=== PATIENT | female | born 1985 | race African-American/Black ===

== ENCOUNTER 2017-12-07 21:33 | Emergency (ER) | payer OTHER, SELFPAY ==
[2017-12-07] MEDS ORDERED: Acetaminophen/Codeine 30-300mg Tablet ONE (21:50)
[2017-12-07] MEDS ORDERED: Clindamycin 150 MG CAP ONE (21:50)
== END 2017-12-07 21:56 | disposition home or self-care (01) ==
LOC: BURERS 21:33
DX: K04.7 Periapical abscess without sinus (principal); F17.210 Nicotine dependence, cigarettes, uncomplicated
CPT/HCPCS: 99282

== ENCOUNTER → 2020-04-10 | Emergency (ER) | payer OTHER ==
--- NOTE | 2020-04-10 18:53 | RAD ---
RIGHT FOOT THREE VIEWS: 04/10/20 No fracture was seen. All bones appear intact. The joints appear normal. IMPRESSION: No acute findings. POS: HOME
== END ==
LOC: BURERS 16:41
DX: S93.601A Unspecified sprain of right foot, initial encounter (principal); F17.210 Nicotine dependence, cigarettes, uncomplicated; W18.42XA Slipping, tripping and stumbling without falling due to stepping into hole or opening, initial encounter
CPT/HCPCS: 99281

== ENCOUNTER 2021-11-16 16:38 | Emergency (ER) | payer OTHER, SELFPAY | END 2021-11-16 16:59 | disposition home or self-care (01) | LOC: BURERS 16:38 | DX: I10 Essential (primary) hypertension (principal); F17.210 Nicotine dependence, cigarettes, uncomplicated; Z79.899 Other long term (current) drug therapy | CPT/HCPCS: 93005; 99406 ==

== ENCOUNTER 2021-12-11 20:53 | Emergency (ER) | payer SELFPAY ==
[2021-12-11 23:31] LABS: Mean Corpuscular HGB CONC 33.8 g/dL (32.0-36.0); Mean Corpuscular Hemoglobin 30.4 pg (27.0-31.0); Mean Corpuscular Volume 89.9 fL (78.0-98.0); Mean Platelet Volume 7.3 fL (7.4-10.4); Platelet Count 212 thou/uL (130-400); RBC Distribution Width 13.2 % (11.5-14.5); Red Blood Cell (RBC) Count 4.59 mill/uL (4.20-5.40); White Blood Cell (WBC) Count 2.8 thou/uL (4.8-10.8)
[2021-12-11 23:38] LABS: ALT (SGPT) 18 U/L (8-55); AST (SGOT) 22 U/L (5-34); Albumin 4.5 g/dL (3.5-5.0); Alkaline Phosphatase 51 U/L (40-110); Anion Gap 14 mmol/L (10-20); BUN (Urea Nitrogen) 9 mg/dL (7.0-18.7); Bilirubin, Total Less than 0.2 mg/dL (0.2-1.2); Calc. Creatinine Clearance 0 mL/min (70-130); Calcium 9.6 mg/dL (7.8-10.44); Carbon Dioxide 26 mmol/L (22-29); Chloride 104 mmol/L (98-107); Globulin 3.5 g/dL (2.4-3.5); Glucose 97 mg/dL (70-105); Sodium 140 mmol/L (136-145)
[2021-12-12 00:02] LABS: Lymphocytes 60 % (21-51); MDiff Complete? YES; Monocytes 15 % (0-10); Neutrophil 25 % (42-75); Platelet Morphology Comment Appears Adequate; RBC Morphology Normal
== END 2021-12-12 01:34 | disposition left against medical advice (07) ==
LOC: BURERS 20:53
DX: B34.9 Viral infection, unspecified (principal); R07.9 Chest pain, unspecified; R94.31 Abnormal electrocardiogram [ECG] [EKG]; I10 Essential (primary) hypertension; F17.210 Nicotine dependence, cigarettes, uncomplicated
CPT/HCPCS: 36415; 71045; 80053; 83880; 84443; 84484; 85025; 93005

== ENCOUNTER 2023-03-08 18:21 | Emergency (ER) | payer SELFPAY ==
[~2023-03-08 18:21] MED LIST: Iopamidol 370 76% 100 ML VIAL ONE
[2023-03-08 18:44] LABS: #Eosinphils 0.1 thou/uL (0.0-0.7); #Lymphocytes 2.1 thou/uL (1.20-3.40); #Monocytes 0.4 thou/uL (0.11-0.59); #Neutrophils 2.9 thou/uL (1.40-6.50); %Basophils 0.8 % (0.0-1.0); %Eosinophils 1.1 % (0.0-10.0); %Monocytes 6.4 % (0.0-10.0); %Neutrophils 53.8 % (42.0-75.0); Hemoglobin 12.8 g/dL (12.0-16.0); Mean Corpuscular HGB CONC 31.9 g/dL (32.0-36.0); Mean Corpuscular Hemoglobin 30.3 pg (27.0-31.0); Platelet Count 230 10x3/uL (130-400); RBC Distribution Width 12.6 % (11.5-14.5); Red Blood Cell (RBC) Count 4.23 mill/uL (4.20-5.40); White Blood Cell (WBC) Count 5.5 10x3/uL (4.8-10.8)
[2023-03-08] MEDS ORDERED: Mag-Al Plus 1200 MG/1200 MG/120 MG/30 ML UDCUP ONE (18:48)
[2023-03-08] MEDS ORDERED: Famotidine 20 MG TAB ONE (18:48)
[2023-03-08 18:57] LABS: Bilirubin Negative (Negative); Blood, Urine Moderate (Negative); Clarity Cloudy (Clear); Glucose, Urine (Dipstick) Negative (Negative); Ketone, Urine Negative (Negative); Leukocyte Negative (Negative); Nitrite Negative (Negative); Protein, Urine (Dipstick) Negative (Neg-Trace); Specific Gravity, Urine 1.025 (1.005-1.030); Urobilinogen 0.2 mg/dL (Less than 2)
[2023-03-08 19:03] LABS: ALT (SGPT) 17 U/L (8-55); AST (SGOT) 19 U/L (5-34); Albumin 4.2 g/dL (3.5-5.0); Alkaline Phosphatase 49 U/L (40-110); Anion Gap 12 mmol/L (10-20); BUN (Urea Nitrogen) 8 mg/dL (7.0-18.7); Bilirubin, Total 0.4 mg/dL (0.2-1.2); Calc. Creatinine Clearance 0 mL/min (70-130); Calcium 9.4 mg/dL (7.8-10.44); Carbon Dioxide 21 mmol/L (22-29); Chloride 107 mmol/L (98-107); Estimated GFR 88; Glucose 98 mg/dL (70-105); Lipase 255 U/L (8-78); Magnesium 1.6 mg/dL (1.6-2.6); Potassium 3.5 mmol/L (3.5-5.1); Protein, Total 7.2 g/dL (6.0-8.3); Sodium 136 mmol/L (136-145)
[2023-03-08 19:06] LABS: Bacteria/HPF 3+ HPF (None Seen); Squamous Epithelial 0-3 HPF (0-3); WBC/HPF 0-3 HPF (0-3)
[2023-03-08 19:07] LABS: Amphetamine Not Detected (NotDetected); Barbiturates Screen Not Detected (NotDetected); Benzodiazepine Screen Not Detected (NotDetected); Cocaine Metabolite Screen Not Detected (NotDetected); Methadone Not Detected (NotDetected); Methamphetamine Not Detected (NotDetected); Mucous/LPF 2+ LPF (<2+); Opiate Screen Not Detected (NotDetected); Oxycodone Screen Not Detected (NotDetected); Phencyclidine (PCP) Not Detected (NotDetected); THC/Cannabinoid Screen Detected (NotDetected); Tricyclic Screen Not Detected (NotDetected)
[2023-03-08 19:21] LABS: Pregnancy Test - Urine (BHCG) Negative (Negative); Pregu Control Background? CLEAR/WHITE (CLR/WHITE); Pregu Control Bar Appear? YES (CONTROL BAR); Specific Gravity 1.025 (1.002-1.036)
[2023-03-08] MEDS ORDERED: traMADol HCl 50 MG TAB ONE (20:31)
[2023-03-08] MEDS ORDERED: Ciprofloxacin 500 MG TAB ONE (20:31)
== END 2023-03-08 20:24 | disposition home or self-care (01) ==
LOC: BURERS 18:21
DX: K50.00 Crohn's disease of small intestine without complications (principal); F12.10 Cannabis abuse, uncomplicated; E86.0 Dehydration; I10 Essential (primary) hypertension; F17.210 Nicotine dependence, cigarettes, uncomplicated
CPT/HCPCS: 74177; 80053; 80306; 81003; 81015; 81025; 83605; 83690; 83735; 85025; 96360; Q9967

== ENCOUNTER 2024-06-21 18:01 | Emergency (ER) | payer OTHER, SELFPAY ==
[2024-06-21] MEDS ORDERED: Cyclobenzaprine 10 MG TAB ONE (18:35)
== END 2024-06-21 18:50 | disposition home or self-care (01) ==
LOC: BURERS 18:01
DX: M62.830 Muscle spasm of back (principal); I10 Essential (primary) hypertension; F17.210 Nicotine dependence, cigarettes, uncomplicated
CPT/HCPCS: 99282

== ENCOUNTER 2024-09-30 09:11 | Emergency (ER) | payer OTHER ==
[2024-09-30] MEDS ORDERED: Ketorolac Tromethamine 60 MG/2 ML VIAL ONE (09:35)
[2024-09-30] MEDS ORDERED: Methocarbamol 500 MG TAB ONE (09:37)
== END 2024-09-30 09:50 | disposition home or self-care (01) ==
LOC: BURERS 09:11
DX: S39.012A Strain of muscle, fascia and tendon of lower back, initial encounter (principal); I10 Essential (primary) hypertension; F17.210 Nicotine dependence, cigarettes, uncomplicated; Z79.899 Other long term (current) drug therapy
CPT/HCPCS: 96372; 99283; J1885

== ENCOUNTER 2025-09-20 22:18 | Emergency (ER) | payer OTHER | END 2025-09-20 23:03 | disposition home or self-care (01) | LOC: BURERS 22:18 | DX: J03.90 Acute tonsillitis, unspecified (principal); I10 Essential (primary) hypertension; F17.210 Nicotine dependence, cigarettes, uncomplicated; Z71.6 Tobacco abuse counseling; Z79.899 Other long term (current) drug therapy | CPT/HCPCS: 87081; 87428; 87430; 99283 ==